=== PATIENT | male | born 1975 | race African-American/Black ===

== ENCOUNTER 2018-06-16 06:03 | Emergency (ER) | payer OTHER ==
[~2018-06-16] VITALS: Ht 175.3 cm; Wt 81.7 kg
[2018-06-16] MEDS ORDERED: OXCARBAZEPINE300 MG PO (06:13)
[2018-06-16] MEDS ORDERED: AFRIN30 ML NASAL (06:27)
[2018-06-16] MEDS ORDERED: MUCINEX D ER 11 EACH PO (06:27)
[2018-06-16 06:50] VITALS: BP 130/83
== END 2018-06-16 06:51 | disposition home or self-care (01) ==
LOC: ER 06:03
DX: R51 Headache (principal); F17.210 Nicotine dependence, cigarettes, uncomplicated